=== PATIENT | male | born 1975 | race Caucasian/White ===

== ENCOUNTER 2020-06-27 16:41 | Outpatient (REF) | payer SELFPAY ==
[2020-06-27 17:19] LABS: Cholesterol 95 mg/dL
== END 2020-06-27 16:42 | disposition home or self-care (01) ==
LOC: HO.LNC 16:41
PROVIDERS: Visit Provider Pathology Anatomic Pathology & Clinical Pathology
DX: Z76.89 Persons encountering health services in other specified circumstances (principal)
CPT/HCPCS: 82465

== ENCOUNTER 2020-09-11 16:12 | Outpatient (REF) | payer SELFPAY ==
[2020-09-11 16:44] LABS: Cholesterol 103 mg/dL
== END 2020-09-11 16:13 | disposition home or self-care (01) ==
LOC: HO.LNC 16:12
PROVIDERS: Visit Provider Pathology Anatomic Pathology & Clinical Pathology
DX: Z13.89 Encounter for screening for other disorder (principal)
CPT/HCPCS: 36415; 82465